=== PATIENT | female | born 1995 | race Caucasian/White ===

== ENCOUNTER 2017-08-21 08:27 | Inpatient (IN) ==
[2017-08-28] MEDS ORDERED: TERBUTALINE 1 MG/ML VIAL SQ PRN ×2 (17:22→17:40)
[2017-08-28] MEDS ORDERED: DINOPROSTONE 10 MG VAGINAL INSERT VG ONE ×2 (17:22→17:40)
[2017-08-28] MEDS ORDERED: CARBOPROST 250 MCG/ML INJECTION IM PRN (17:28)
[2017-08-28] MEDS ORDERED: METHYLERGONOVINE 0.2 MG/ML INJECTION IM PRN (17:28)
[2017-08-28] MEDS ORDERED: ACETAMINOPHEN 500 MG TABLET PO PRN (17:28)
[2017-08-28] MEDS ORDERED: CALCIUM CARBONATE Chewable 500mg TABLET PO PRN (17:28)
[2017-08-28] MEDS ORDERED: MAG-AL + SIM ORAL LIQUID 30ml PO PRN (17:28)
[2017-08-28] MEDS ORDERED: LIDOCAINE 1% (10mg/ml) 2mL INJ PF SDV ID PRN (17:28)
[2017-08-28] MEDS ORDERED: SALINE FLUSH 10ml SYRINGE IV PRN (17:40)
[2017-08-28 18:21] VITALS: BMI 33.0
[2017-08-28] MEDS: SALINE FLUSH 10ml SYRINGE IV PRN (22:05)
[2017-08-28] MEDS ORDERED: NALBUPHINE 10 MG/ML INJECTION IVP PRN (23:34)
[2017-08-28] MEDS: LR 1,000 ML IV PRN (23:35)
[2017-08-29] MEDS: SALINE FLUSH 10ml SYRINGE IV PRN (00:36)
[2017-08-29] MEDS: LR 1,000 ML IV PRN ×2 (06:01→10:57)
[2017-08-29] MEDS ORDERED: D5LR 1,000 ML IV PRN (06:02)
[2017-08-29] MEDS ORDERED: OXYTOCIN DRIP 30 UNIT/500 ML ML IV PRN (06:02)
--- NOTE | 2017-08-29 09:24 | Anesthesia Preoperative Report ---
Anesthesia Epidural/Spinal Rec - Date and Time Date: 08/29/17 Preoperative Diagnosis: Procedure: Labor Epidural Plan: Epidural - Vital Signs Vital Signs: Temperature 98.7 F 08/28/17 17:20 Pulse Rate 100 08/28/17 17:20 Respiratory Rate 18 08/28/17 17:20 Blood Pressure 118/67 08/28/17 17:20 /Para: P:2 - Medictaions & Allergies Inpatient Medications: Current Medications Acetaminophen (Tylenol) 500 - 1,000 mg PO Q4H PRN PRN Reason: Pain Last Admin: 08/29/17 00:31 Dose: 1,000 mg Al Hydroxide/Mg Hydroxide (Maalox Plus) 30 ml PO Q3H PRN PRN Reason: Indigestion Calcium Carbonate (Tums) 500 - 1,000 mg PO Q2H PRN PRN Reason: Indigestion Carboprost Tromethamine (Hemabate) 250 mcg IM O PRN PRN Reason: .Downtime Diphenhydramine HCl (Benadryl) 50 mg PO HS PRN PRN Reason: Sleep Last Admin: 08/28/17 22:04 Dose: 50 mg Diphenhydramine HCl (Benadryl) 50 mg PO HS PRN PRN Reason: Sleep Lactated Ringer's (Lactated Ringers) 1,000 mls @ 999 mls/hr IV .Q1H1M PRN Last Admin: 08/29/17 06:01 Dose: 999 mls/hr Oxytocin (Pitocin Drip) 30 unit in 500 mls @ 2 mls/hr IV .Q24H PRN; Protocol PRN Reason: Induction/Augmentation Last Admin: 08/29/17 06:04 Dose: 2 mls/hr Dextrose/Lactated Ringer's (Dextrose 5%-Lactated Ringers) 1,000 mls @ 125 mls/ hr IV .Q8H PRN PRN Reason: Labor Last Admin: 08/29/17 06:04 Dose: 125 mls/hr Lidocaine HCl (Xylocaine-Mpf 1% Vial) 0.2 mg ID O PRN PRN Reason: IV Start Methylergonovine Maleate (Methergine) 0.2 mg IM O PRN Misoprostol (Cytotec) 800 mcg ID ONCE PRN Nalbuphine HCl (Nubain) 10 mg IVP ONE TIME PRN Sodium Chloride (Iv Flush) 10 - 80 ml IV PRN PRN PRN Reason: Flushing Last Admin: 08/29/17 00:36 Dose: 10 ml Sodium Chloride (Iv Flush) 10 - 80 ml IV PRN PRN PRN Reason: Flushing Terbutaline Sulfate (Brethine) 0.25 mg SQ PRN PRN Terbutaline Sulfate (Brethine) 0.25 mg SQ PRN PRN Allergies/Adverse Reactions: Allergies Allergy/AdvReac Type Severity Reaction Status Date / Time No Known Allergies Allergy Verified 08/29/17 03:55 - Home Medications Home Medications: Home Medications Medication Instructions Recorded Confirmed Type Vitamins 07/28/17 History Zofran 07/28/17 History - Medical History Other History: Reports: Now - Surgical History Reproductive Surgery/Treatment: DENIES: Section Anesthesia Reactions: None Hx Family Anesthesia Reaction: No History of Motion Sickness: No - Social History Smoking Status: Never smoker Second Hand Exposure: No Substance Use Type: does not use Alcohol Intake Frequency: does not drink Hx Chewing Tobacco Use: No - Pertinent Findings Lab Data: CBC and BMP 08/28/17 17:46 - Physical Exam Respiratory Exam: lungs clear Cardiovascular Exam: regular rate and rhythm, no murmur - Airway Assessment Mallampati Score: I Neck Extension: good Overall Assessment: no airway concerns - ASA ASA Score: 2 - Discussion Discussion: Discussed risks/options/alternatives of anesthesia and questions answered. Patient consents. Nursing pain assessment noted. Anesthesia Discussion: spouse Attestation Statement: Prior to the delivery of any anesthetic medication, I examined the patient, developed the plan, obtained the patient's consent and discussed the risk and benefits of the procedure with the patient/guardian.
[2017-08-29] MEDS ORDERED: NALOXONE 0.4 MG/ML INJECTION IVP PRN (10:46)
[2017-08-29] MEDS ORDERED: ONDANSETRON 4 MG/2 ML INJECTION IVP PRN (10:46)
[2017-08-29] MEDS ORDERED: ROPIVACAINE 1% 10MG/ML INJ 200 MG, SUFentanil 50 MCG in NS 100 ML EPI PRN (10:46)
[2017-08-29] MEDS ORDERED: DiphenhydrAMINE 50 MG/ML INJECTION IVP PRN (10:46)
[2017-08-29] MEDS: IBUPROFEN 800 MG TABLET PO PRN (17:59)
[2017-08-29] MEDS ORDERED: ACETAMINOPHEN 500 MG TABLET PO PRN (18:11)
[2017-08-29] MEDS ORDERED: HYDROCORTISONE 2.5% CREAM 30gm RECTALLY PRN (18:11)
[2017-08-29] MEDS ORDERED: MAG-AL + SIM ORAL LIQUID 30ml PO PRN (18:11)
[2017-08-29] MEDS ORDERED: HYDROCODONE/APAP 5mg/325mg TABLET PO PRN (18:11)
[2017-08-29] MEDS ORDERED: CALCIUM CARBONATE Chewable 500mg TABLET PO PRN (18:11)
[2017-08-29] MEDS ORDERED: OXYTOCIN DRIP 30 UNIT/500 ML ML IV SCH (18:11)
[2017-08-29] MEDS ORDERED: DiphenhydrAMINE 25 MG CAPSULE PO PRN (18:11)
--- NOTE | 2017-08-29 18:38 | Labor and Delivery Note ---
DATE OF DELIVERY 08/29/2017 SUMMARY Ms. Pearce progressed well in first stage of labor. She began to push with excellent effort at the complete and +2 position. She pushed for about an hour and a half, delivering the head in the OA presentation. Baby was bulb suctioned on the perineum. There was no evidence of nuchal cord. With a further push she delivered the baby in total. Baby was then further bulb suctioned and placed on mother's abdomen. After a little over two minutes the cord was doubly clamped and it was cut by baby's father, Yobani. This is a liveborn female with Apgars of 8/9/9. She weighed 7 pounds, 6.5 ounces. The placenta subsequently delivered spontaneously intact. It had a normal configuration and normal-appearing three-vessel cord. There was some initial brisk bleeding that was resolved with uterine fundal massage and IM Methergine. There was a second-degree midline laceration that was repaired in the usual fashion with a 2-0 Vicryl. There were bilateral periurethral lacerations that were repaired with subcuticular style 3-0 chromic. Total blood loss was approximately 400 mL. At the time of this dictation mother and baby are doing well. [facility]
[2017-08-30] MEDS: IBUPROFEN 800 MG TABLET PO PRN ×2 (09:22→19:04)
[2017-08-30] MEDS: DOCUSATE CALCIUM 240 MG CAPSULE PO SCH (09:22)
--- NOTE | 2017-08-30 12:08 | Anesthesia Postoperative Note ---
- Date and Time Date: 08/30/17 Time: 12:07 - Status Patient Participated in Evaluation: Patient Participated in Person Vital Signs: Temperature 97.8 F 08/30/17 06:00 Pulse Rate 87 08/30/17 06:00 Respiratory Rate 16 08/30/17 06:00 Blood Pressure 134/56 08/30/17 06:00 Pulse Oximetry 98 08/30/17 06:00 Respiratory Function: Airway Patent Cardiovascular Function: Regular Pulse Mental Status: Alert and Oriented Pain Intensity: 0 Hydration: Taking PO Fluids Complications During Recover: None Apparent - Follow-Up Instructions Instructions: Per Surgeon
--- NOTE | 2017-08-30 14:15 | OB/GYN Progress Note ---
OB-PP Progress Note - General PPD1 Maternal Group B Strep: Negative Maternal blood type: O+ Maternal Rubella Status: Immune - Subjective Date: 08/30/17 Lochia: Minimal Pain: controlled Voiding: voiding Nausea or Vomiting Present: No - Objective Vital Signs: Last Vital Signs Temp 98.1 F 08/30/17 13:36 Pulse 78 08/30/17 13:36 Resp 18 08/30/17 13:36 BP 122/67 08/30/17 13:36 Pulse Ox 97 08/30/17 13:36 Urine Output: good General: alert and oriented Abdomen: fundus firm, non-tender Extremities: non-tender Side: bilateral Site: leg Edema Degree: 1+ - Assessment Assessment: SP, - Plan Plan: routine care
[2017-08-31] MEDS: IBUPROFEN 800 MG TABLET PO PRN (09:07)
[2017-08-31] MEDS: DOCUSATE CALCIUM 240 MG CAPSULE PO SCH (09:07)
[2017-08-31 10:53] VITALS: BP 119/65; PULSE 86; RESP 20; TEMP 98; O2SAT 97
== END 2017-08-31 12:57 | disposition home or self-care (01) | DRG 774 ==
LOC: MC 08-28 17:13
PROVIDERS: ADMIT Obstetrics & Gynecology; ATTEND Obstetrics & Gynecology